=== PATIENT | male | born 1980 | race African-American/Black ===

== ENCOUNTER 2021-03-31 12:59 | Inpatient (IN) | payer OTHER ==
[2021-03-31] MEDS ORDERED: ONDANSETRON *ODT* 4 MG TABLET SL PRN (13:39)
[2021-03-31] MEDS ORDERED: MAGNESIUM CITRATE 300 ML BOTTLE PO PRN (13:39)
[2021-03-31] MEDS ORDERED: MAGNESIUM HYDROX 2400MG/30ML ORAL SUSPENSION 30 ML CUP PO PRN (13:39)
[2021-03-31] MEDS ORDERED: MENTHOL/PHENOL 1 EACH UD MM PRN (13:39)
[2021-03-31] MEDS ORDERED: ACETAMINOPHEN 325 MG TABLET (FP) PO PRN ×2 (13:39)
[2021-03-31] MEDS ORDERED: BISMUTH SUBSALICYLATE 524 MG/30 ML PO PRN (13:39)
[2021-03-31] MEDS ORDERED: diazePAM 5 MG TABLET PO PRN (13:39)
[2021-03-31] MEDS ORDERED: MAG HYDROX/AL HYDROX/SIMETH 30 ML UNIT-DOSE CUP PO PRN (13:39)
[2021-03-31] MEDS ORDERED: hydrOXYzine PAMOATE 25 MG CAPSULE (FP) PO SCH (14:00)
[2021-03-31 14:25] VITALS: BMI 29.3
[2021-03-31] MEDS ORDERED: cloNIDine HCL 0.1 MG TABLET ONE (14:31)
[2021-03-31] MEDS ORDERED: cloNIDine HCL 0.1 MG TABLET PO ONE (14:57)
[2021-03-31 17:21] LABS: HEMATOCRIT 45.4 % (35.4-49); HEMOGLOBIN 15.2 GM/dL (11.7-16.9); MCH 32.3 pg (25.7-33.7); MCHC 33.6 g/dl (32.0-35.9); MEAN CELL VOLUME 96.1 fl (80-96); MEAN PLT VOLUME 8.3 fl (7.5-11.1); PLATELET COUNT 273 10^3/uL (134-434); RBC 4.72 M/mm3 (4.00-5.60); RDW 15.6 % (11.9-15.9); WHITE BLOOD COUNT 10.5 K/mm3 (4.0-10.0)
[2021-03-31 17:28] LABS: CALCIUM 9.2 mg/dL (8.5-10.1)
[2021-03-31 17:29] LABS: ALBUMIN 3.7 g/dl (3.4-5.0); BLOOD UREA NITROGEN 13.8 mg/dL (7-18)
[2021-03-31 17:32] LABS: CREATININE 1.1 mg/dL (0.55-1.3)
[2021-03-31 17:34] LABS: BILIRUBIN,TOTAL 1.5 mg/dL (0.2-1); TOT PROT 8.4 g/dl (6.4-8.2)
[2021-03-31] MEDS: hydrOXYzine PAMOATE 25 MG CAPSULE (FP) PO PRN ×2 (17:56→22:10)
[2021-03-31] MEDS: diazePAM 5 MG TABLET PO SCH ×2 (17:57→22:10)
[2021-03-31] MEDS: HYDROCHLOROTHIAZIDE 12.5 MG CAPSULE (FP) PO SCH (17:57)
[2021-03-31] MEDS: METHOCARBAMOL 500 MG TABLET PO PRN (17:58)
[2021-03-31] MEDS: FLUOCINONIDE 0.05% TOP OINT (60 GM TUBE) TP SCH ×2 (18:02→22:10)
[2021-03-31] MEDS: MELATONIN 5 MG TABLETS PO SCH (22:10)
[2021-03-31] MEDS: THIAMINE HCL 100 MG TABLET (FP) PO SCH (22:10)
[2021-04-01] MEDS: diazePAM 5 MG TABLET PO SCH ×4 (05:29→22:32)
[2021-04-01] MEDS: HYDROCHLOROTHIAZIDE 12.5 MG CAPSULE (FP) PO SCH (10:07)
[2021-04-01] MEDS: hydrOXYzine PAMOATE 25 MG CAPSULE (FP) PO PRN (10:07)
[2021-04-01] MEDS: PRENATAL VITAMINS W/ FOLIC ACID TABLET (FP) PO SCH (10:07)
[2021-04-01] MEDS: FLUOCINONIDE 0.05% TOP OINT (60 GM TUBE) TP SCH ×4 (10:07→22:32)
[2021-04-01] MEDS: amLODIPine BESYLATE 5 MG TABLET (FP) PO SCH (10:07)
[2021-04-01] MEDS ORDERED: FLU VACC QS2021-22(6MOS UP)/PF 60 MCG/0.5 ML SYRINGE IM ONE (13:00)
[2021-04-01 13:26] LABS: HIV INTERPRETATION NEGATIVE (NEGATIVE)
[2021-04-01] MEDS: THIAMINE HCL 100 MG TABLET (FP) PO SCH (22:32)
[2021-04-01] MEDS: MELATONIN 5 MG TABLETS PO SCH (22:32)
[2021-04-01] MEDS: IBUPROFEN 400 MG TABLET (FP) PO PRN (22:34)
[2021-04-01] MEDS: NICOTINE 10 MG CARTRIDGE (INHALER) IH PRN (22:51)
[2021-04-02] MEDS ORDERED: diazePAM 5 MG TABLET PO SCH (06:00)
[2021-04-02] MEDS: amLODIPine BESYLATE 5 MG TABLET (FP) PO SCH (09:57)
[2021-04-02] MEDS: HYDROCHLOROTHIAZIDE 12.5 MG CAPSULE (FP) PO SCH (09:57)
[2021-04-02] MEDS: PRENATAL VITAMINS W/ FOLIC ACID TABLET (FP) PO SCH (09:58)
[2021-04-02] MEDS: FLUOCINONIDE 0.05% TOP OINT (60 GM TUBE) TP SCH ×4 (09:58→22:15)
[2021-04-02 10:33] LABS: BLOOD UREA NITROGEN 12.3 mg/dL (7-18); CALCIUM 8.8 mg/dL (8.5-10.1)
[2021-04-02 10:35] LABS: HEMATOCRIT 45.1 % (35.4-49); HEMOGLOBIN 15.2 GM/dL (11.7-16.9); MCH 32.1 pg (25.7-33.7); MCHC 33.7 g/dl (32.0-35.9); MEAN CELL VOLUME 95.3 fl (80-96); MEAN PLT VOLUME 8.2 fl (7.5-11.1); PLATELET COUNT 246 10^3/uL (134-434); RBC 4.74 M/mm3 (4.00-5.60); RDW 15.3 % (11.9-15.9); WHITE BLOOD COUNT 5.6 K/mm3 (4.0-10.0)
[2021-04-02 10:37] LABS: CREATININE 0.8 mg/dL (0.55-1.3)
[2021-04-02 10:38] LABS: BILIRUBIN,TOTAL 0.7 mg/dL (0.2-1); TOT PROT 7.1 g/dl (6.4-8.2)
[2021-04-02 11:08] LABS: ALBUMIN 2.8 g/dl (3.4-5.0)
[2021-04-02] MEDS ORDERED: LORazepam 1 MG TABLET PO PRN (13:41)
[2021-04-02] MEDS: LORazepam 2 MG TABLET PO SCH ×2 (17:48→22:16)
[2021-04-02] MEDS: THIAMINE HCL 100 MG TABLET (FP) PO SCH (22:15)
[2021-04-02] MEDS: MELATONIN 5 MG TABLETS PO SCH (22:16)
[2021-04-02] MEDS: IBUPROFEN 400 MG TABLET (FP) PO PRN (22:17)
[2021-04-02] MEDS: NICOTINE 10 MG CARTRIDGE (INHALER) IH PRN (22:18)
[2021-04-03] MEDS: LORazepam 2 MG TABLET PO SCH ×4 (05:39→22:16)
[2021-04-03] MEDS ORDERED: diazePAM 5 MG TABLET PO SCH (06:00)
[2021-04-03] MEDS: amLODIPine BESYLATE 5 MG TABLET (FP) PO SCH (10:11)
[2021-04-03] MEDS: HYDROCHLOROTHIAZIDE 12.5 MG CAPSULE (FP) PO SCH (10:11)
[2021-04-03] MEDS: PRENATAL VITAMINS W/ FOLIC ACID TABLET (FP) PO SCH (10:13)
[2021-04-03] MEDS: FLUOCINONIDE 0.05% TOP OINT (60 GM TUBE) TP SCH ×4 (10:13→22:16)
[2021-04-03 12:35] LABS: ALBUMIN 2.7 g/dl (3.4-5.0); BLOOD UREA NITROGEN 11.4 mg/dL (7-18)
[2021-04-03 12:37] LABS: INR 1.24 (0.83-1.09); PROTHROMBIN TIME (PATIENT) 13.9 SEC (9.7-13.0)
[2021-04-03 12:38] LABS: CREATININE 0.8 mg/dL (0.55-1.3)
[2021-04-03 12:40] LABS: BILIRUBIN,TOTAL 0.4 mg/dL (0.2-1); TOT PROT 6.8 g/dl (6.4-8.2)
[2021-04-03] MEDS: NICOTINE 10 MG CARTRIDGE (INHALER) IH PRN (17:41)
[2021-04-03] MEDS: THIAMINE HCL 100 MG TABLET (FP) PO SCH (22:16)
[2021-04-03] MEDS: MELATONIN 5 MG TABLETS PO SCH (22:16)
[2021-04-04] MEDS: LORazepam 1 MG TABLET PO SCH ×4 (05:32→22:19)
[2021-04-04] MEDS ORDERED: diazePAM 5 MG TABLET PO ONE (06:00)
[2021-04-04] MEDS: HYDROCHLOROTHIAZIDE 12.5 MG CAPSULE (FP) PO SCH (10:25)
[2021-04-04] MEDS: FLUOCINONIDE 0.05% TOP OINT (60 GM TUBE) TP SCH ×4 (10:25→22:53)
[2021-04-04] MEDS: PRENATAL VITAMINS W/ FOLIC ACID TABLET (FP) PO SCH (10:26)
[2021-04-04] MEDS: amLODIPine BESYLATE 5 MG TABLET (FP) PO SCH (10:26)
[2021-04-04] MEDS: NICOTINE 10 MG CARTRIDGE (INHALER) IH PRN (19:49)
[2021-04-04] MEDS ORDERED: MELATONIN 5 MG TABLETS PO SCH (22:00)
[2021-04-04] MEDS: THIAMINE HCL 100 MG TABLET (FP) PO SCH (22:18)
[2021-04-04] MEDS: METHOCARBAMOL 500 MG TABLET PO PRN (22:19)
[2021-04-04] MEDS: hydrOXYzine PAMOATE 25 MG CAPSULE (FP) PO PRN (22:19)
[2021-04-05] MEDS ORDERED: LORazepam 0.5 MG TABLET PO PRN
[2021-04-05] MEDS: LORazepam 0.5 MG TABLET PO SCH ×2 (05:24→10:21)
[2021-04-05] MEDS: HYDROCHLOROTHIAZIDE 12.5 MG CAPSULE (FP) PO SCH (10:22)
[2021-04-05] MEDS: PRENATAL VITAMINS W/ FOLIC ACID TABLET (FP) PO SCH (10:22)
[2021-04-05] MEDS: FLUOCINONIDE 0.05% TOP OINT (60 GM TUBE) TP SCH ×2 (10:22→14:30)
[2021-04-05] MEDS: amLODIPine BESYLATE 5 MG TABLET (FP) PO SCH (10:22)
[2021-04-05 12:56] VITALS: BP 147/93; PULSE 100; TEMP 96.1
[2021-04-06] MEDS ORDERED: LORazepam 0.5 MG TABLET PO ONE (05:00)
== END 2021-04-05 14:29 | disposition other institution (70) | DRG 774 ==
LOC: YASAS 12:59 → Y3N 14:40
PROVIDERS: ADMIT Allergy & Immunology; ATTEND Allergy & Immunology
PROC: HZ2ZZZZ Detoxification Services for Substance Abuse Treatment (ICD-10-PCS; principal; 2021-03-31)
DX: F10.20 Alcohol dependence, uncomplicated (principal); F14.20 Cocaine dependence, uncomplicated; F12.20 Cannabis dependence, uncomplicated; F17.210 Nicotine dependence, cigarettes, uncomplicated; F19.280 Other psychoactive substance dependence with psychoactive substance-induced anxiety disorder; F19.282 Other psychoactive substance dependence with psychoactive substance-induced sleep disorder; F32.A Depression, unspecified; D23.4 Other benign neoplasm of skin of scalp and neck; B18.2 Chronic viral hepatitis C; I10 Essential (primary) hypertension; M54.50 Low back pain, unspecified; G89.29 Other chronic pain; R74.8 Abnormal levels of other serum enzymes; Z59.01 Sheltered homelessness
CPT/HCPCS: 36415; 80053; 82947; 85027; 85610; 86780; 87389; 90686; 93005; 93010; C9803; G0008; J0735; U0003; U0005

== ENCOUNTER 2021-04-05 15:01 | Inpatient (IN) | payer OTHER ==
[2021-04-05] MEDS ORDERED: P-EPHED 60MG/TRIPROLIDI 2.5MG TABLET PO PRN (15:15)
[2021-04-05] MEDS ORDERED: MAG HYDROX/AL HYDROX/SIMETH 30 ML UNIT-DOSE CUP PO PRN (15:15)
[2021-04-05] MEDS ORDERED: ACETAMINOPHEN 325 MG TABLET (FP) PO PRN (15:15)
[2021-04-05] MEDS ORDERED: MAGNESIUM HYDROX 2400MG/30ML ORAL SUSPENSION 30 ML CUP PO PRN (15:15)
[2021-04-05] MEDS ORDERED: guaiFENesin 200 MG/10 ML 10 ML UNIT-DOSE CUPS PO PRN (15:15)
[2021-04-05] MEDS ORDERED: LOPERAMIDE HCL 2 MG CAPSULE PO PRN (15:15)
[2021-04-05] MEDS ORDERED: MAGNESIUM CITRATE 300 ML BOTTLE PO PRN (15:15)
[2021-04-05] MEDS ORDERED: MENTHOL/PHENOL 1 EACH UD MM PRN (15:15)
[2021-04-05] MEDS: hydrOXYzine PAMOATE 25 MG CAPSULE (FP) PO SCH ×2 (18:14→21:06)
[2021-04-05] MEDS: NICOTINE 10 MG CARTRIDGE (INHALER) IH PRN (18:15)
[2021-04-05] MEDS: FLUOCINONIDE 0.05% TOP OINT (60 GM TUBE) TP SCH ×2 (18:16→21:07)
[2021-04-05] MEDS: MELATONIN 5 MG TABLETS PO SCH (21:06)
[2021-04-05] MEDS: THIAMINE HCL 100 MG TABLET (FP) PO SCH (21:06)
[2021-04-06] MEDS: hydrOXYzine PAMOATE 25 MG CAPSULE (FP) PO SCH ×5 (06:33→21:19)
[2021-04-06] MEDS: PRENATAL VITAMINS W/ FOLIC ACID TABLET (FP) PO SCH (09:46)
[2021-04-06] MEDS: HYDROCHLOROTHIAZIDE 12.5 MG CAPSULE (FP) PO SCH (09:46)
[2021-04-06] MEDS: amLODIPine BESYLATE 5 MG TABLET (FP) PO SCH (09:47)
[2021-04-06] MEDS: FLUOCINONIDE 0.05% TOP OINT (60 GM TUBE) TP SCH ×4 (09:47→21:19)
[2021-04-06] MEDS: NICOTINE 7 MG/24 HOURS TOPICAL PATCH TD SCH (09:47)
[2021-04-06] MEDS: IBUPROFEN 400 MG TABLET (FP) PO PRN (09:47)
[2021-04-06] MEDS: NICOTINE 10 MG CARTRIDGE (INHALER) IH PRN ×2 (16:34→21:19)
[2021-04-06] MEDS: MELATONIN 5 MG TABLETS PO SCH (21:19)
[2021-04-06] MEDS: THIAMINE HCL 100 MG TABLET (FP) PO SCH (21:19)
[2021-04-07] MEDS: hydrOXYzine PAMOATE 25 MG CAPSULE (FP) PO SCH ×5 (07:24→21:03)
[2021-04-07] MEDS: IBUPROFEN 400 MG TABLET (FP) PO PRN (07:25)
[2021-04-07] MEDS: HYDROCHLOROTHIAZIDE 12.5 MG CAPSULE (FP) PO SCH (10:20)
[2021-04-07] MEDS: PRENATAL VITAMINS W/ FOLIC ACID TABLET (FP) PO SCH (10:20)
[2021-04-07] MEDS: amLODIPine BESYLATE 5 MG TABLET (FP) PO SCH (10:20)
[2021-04-07] MEDS: NICOTINE 7 MG/24 HOURS TOPICAL PATCH TD SCH (10:20)
[2021-04-07] MEDS: NICOTINE 10 MG CARTRIDGE (INHALER) IH PRN ×2 (10:23→16:31)
[2021-04-07] MEDS: FLUOCINONIDE 0.05% TOP OINT (60 GM TUBE) TP SCH ×4 (10:57→21:03)
[2021-04-07] MEDS: THIAMINE HCL 100 MG TABLET (FP) PO SCH (21:03)
[2021-04-07] MEDS: MELATONIN 5 MG TABLETS PO SCH (21:03)
[2021-04-08] MEDS: hydrOXYzine PAMOATE 25 MG CAPSULE (FP) PO SCH ×5 (05:53→21:31)
[2021-04-08] MEDS: amLODIPine BESYLATE 5 MG TABLET (FP) PO SCH (10:45)
[2021-04-08] MEDS: IBUPROFEN 400 MG TABLET (FP) PO PRN (10:45)
[2021-04-08] MEDS: NICOTINE 7 MG/24 HOURS TOPICAL PATCH TD SCH (10:45)
[2021-04-08] MEDS: HYDROCHLOROTHIAZIDE 12.5 MG CAPSULE (FP) PO SCH (10:45)
[2021-04-08] MEDS: PRENATAL VITAMINS W/ FOLIC ACID TABLET (FP) PO SCH (10:47)
[2021-04-08] MEDS: FLUOCINONIDE 0.05% TOP OINT (60 GM TUBE) TP SCH ×4 (10:48→21:31)
[2021-04-08] MEDS: NICOTINE 10 MG CARTRIDGE (INHALER) IH PRN (19:12)
[2021-04-08] MEDS: MELATONIN 5 MG TABLETS PO SCH (21:31)
[2021-04-08] MEDS: THIAMINE HCL 100 MG TABLET (FP) PO SCH (21:31)
[2021-04-09] MEDS: hydrOXYzine PAMOATE 25 MG CAPSULE (FP) PO SCH ×5 (06:30→21:01)
[2021-04-09] MEDS: IBUPROFEN 400 MG TABLET (FP) PO PRN (06:32)
[2021-04-09] MEDS: PRENATAL VITAMINS W/ FOLIC ACID TABLET (FP) PO SCH (09:59)
[2021-04-09] MEDS: NICOTINE 7 MG/24 HOURS TOPICAL PATCH TD SCH (09:59)
[2021-04-09] MEDS: amLODIPine BESYLATE 5 MG TABLET (FP) PO SCH (09:59)
[2021-04-09] MEDS: HYDROCHLOROTHIAZIDE 12.5 MG CAPSULE (FP) PO SCH (09:59)
[2021-04-09] MEDS: FLUOCINONIDE 0.05% TOP OINT (60 GM TUBE) TP SCH ×4 (11:04→21:02)
[2021-04-09] MEDS: NICOTINE 10 MG CARTRIDGE (INHALER) IH PRN ×2 (14:39→21:01)
[2021-04-09] MEDS: THIAMINE HCL 100 MG TABLET (FP) PO SCH (21:01)
[2021-04-09] MEDS: MELATONIN 5 MG TABLETS PO SCH (21:01)
[2021-04-10] MEDS: hydrOXYzine PAMOATE 25 MG CAPSULE (FP) PO SCH ×5 (06:07→21:54)
[2021-04-10] MEDS: HYDROCHLOROTHIAZIDE 12.5 MG CAPSULE (FP) PO SCH (10:03)
[2021-04-10] MEDS: amLODIPine BESYLATE 5 MG TABLET (FP) PO SCH (10:03)
[2021-04-10] MEDS: METHOCARBAMOL 500 MG TABLET PO PRN (10:03)
[2021-04-10] MEDS: IBUPROFEN 400 MG TABLET (FP) PO PRN (10:03)
[2021-04-10] MEDS: PRENATAL VITAMINS W/ FOLIC ACID TABLET (FP) PO SCH (10:03)
[2021-04-10] MEDS: FLUOCINONIDE 0.05% TOP OINT (60 GM TUBE) TP SCH ×4 (10:04→21:54)
[2021-04-10] MEDS: NICOTINE 7 MG/24 HOURS TOPICAL PATCH TD SCH (10:04)
[2021-04-10] MEDS: MELATONIN 5 MG TABLETS PO SCH (21:54)
[2021-04-10] MEDS: NICOTINE 10 MG CARTRIDGE (INHALER) IH PRN (21:54)
[2021-04-10] MEDS: THIAMINE HCL 100 MG TABLET (FP) PO SCH (21:54)
[2021-04-11] MEDS: IBUPROFEN 400 MG TABLET (FP) PO PRN ×2 (06:02→21:04)
[2021-04-11] MEDS: hydrOXYzine PAMOATE 25 MG CAPSULE (FP) PO SCH ×5 (06:02→21:03)
[2021-04-11] MEDS: FLUOCINONIDE 0.05% TOP OINT (60 GM TUBE) TP SCH ×4 (10:41→21:03)
[2021-04-11] MEDS: METHOCARBAMOL 500 MG TABLET PO PRN ×2 (10:42→21:03)
[2021-04-11] MEDS: HYDROCHLOROTHIAZIDE 12.5 MG CAPSULE (FP) PO SCH (10:42)
[2021-04-11] MEDS: amLODIPine BESYLATE 5 MG TABLET (FP) PO SCH (10:42)
[2021-04-11] MEDS: PRENATAL VITAMINS W/ FOLIC ACID TABLET (FP) PO SCH (10:42)
[2021-04-11] MEDS: NICOTINE 7 MG/24 HOURS TOPICAL PATCH TD SCH (10:42)
[2021-04-11] MEDS: NICOTINE 10 MG CARTRIDGE (INHALER) IH PRN (12:07)
[2021-04-11] MEDS: THIAMINE HCL 100 MG TABLET (FP) PO SCH (21:03)
[2021-04-11] MEDS: MELATONIN 5 MG TABLETS PO SCH (21:52)
[2021-04-12] MEDS: hydrOXYzine PAMOATE 25 MG CAPSULE (FP) PO SCH ×6 (06:28→21:29)
[2021-04-12] MEDS: IBUPROFEN 400 MG TABLET (FP) PO PRN ×2 (06:28→21:29)
[2021-04-12] MEDS: PRENATAL VITAMINS W/ FOLIC ACID TABLET (FP) PO SCH (10:41)
[2021-04-12] MEDS: NICOTINE 10 MG CARTRIDGE (INHALER) IH PRN ×2 (10:41→21:28)
[2021-04-12] MEDS: METHOCARBAMOL 500 MG TABLET PO PRN (10:41)
[2021-04-12] MEDS: amLODIPine BESYLATE 5 MG TABLET (FP) PO SCH (10:41)
[2021-04-12] MEDS: HYDROCHLOROTHIAZIDE 12.5 MG CAPSULE (FP) PO SCH (10:41)
[2021-04-12] MEDS: FLUOCINONIDE 0.05% TOP OINT (60 GM TUBE) TP SCH ×4 (10:41→21:29)
[2021-04-12] MEDS: NICOTINE 7 MG/24 HOURS TOPICAL PATCH TD SCH (10:41)
[2021-04-12] MEDS: THIAMINE HCL 100 MG TABLET (FP) PO SCH (21:28)
[2021-04-12] MEDS: MELATONIN 5 MG TABLETS PO SCH (21:28)
[2021-04-13] MEDS: hydrOXYzine PAMOATE 25 MG CAPSULE (FP) PO SCH ×5 (06:43→21:01)
[2021-04-13] MEDS: HYDROCHLOROTHIAZIDE 12.5 MG CAPSULE (FP) PO SCH (11:25)
[2021-04-13] MEDS: PRENATAL VITAMINS W/ FOLIC ACID TABLET (FP) PO SCH (11:25)
[2021-04-13] MEDS: FLUOCINONIDE 0.05% TOP OINT (60 GM TUBE) TP SCH ×4 (11:25→21:01)
[2021-04-13] MEDS: NICOTINE 7 MG/24 HOURS TOPICAL PATCH TD SCH (11:25)
[2021-04-13] MEDS: amLODIPine BESYLATE 5 MG TABLET (FP) PO SCH (11:25)
[2021-04-13] MEDS: IBUPROFEN 400 MG TABLET (FP) PO PRN (18:26)
[2021-04-13] MEDS: THIAMINE HCL 100 MG TABLET (FP) PO SCH (21:01)
[2021-04-13] MEDS: MELATONIN 5 MG TABLETS PO SCH (21:01)
[2021-04-14] MEDS: hydrOXYzine PAMOATE 25 MG CAPSULE (FP) PO SCH ×5 (05:49→21:55)
[2021-04-14] MEDS: PRENATAL VITAMINS W/ FOLIC ACID TABLET (FP) PO SCH (09:10)
[2021-04-14] MEDS: amLODIPine BESYLATE 5 MG TABLET (FP) PO SCH (09:10)
[2021-04-14] MEDS: HYDROCHLOROTHIAZIDE 12.5 MG CAPSULE (FP) PO SCH (09:10)
[2021-04-14] MEDS: NICOTINE 7 MG/24 HOURS TOPICAL PATCH TD SCH (09:11)
[2021-04-14] MEDS: FLUOCINONIDE 0.05% TOP OINT (60 GM TUBE) TP SCH ×4 (09:12→21:56)
[2021-04-14] MEDS: THIAMINE HCL 100 MG TABLET (FP) PO SCH (21:55)
[2021-04-14] MEDS: MELATONIN 5 MG TABLETS PO SCH (21:55)
[2021-04-14] MEDS: NICOTINE 10 MG CARTRIDGE (INHALER) IH PRN (21:56)
[2021-04-15] MEDS: hydrOXYzine PAMOATE 25 MG CAPSULE (FP) PO SCH ×5 (06:41→21:12)
[2021-04-15] MEDS: amLODIPine BESYLATE 5 MG TABLET (FP) PO SCH (09:54)
[2021-04-15] MEDS: HYDROCHLOROTHIAZIDE 12.5 MG CAPSULE (FP) PO SCH (09:54)
[2021-04-15] MEDS: PRENATAL VITAMINS W/ FOLIC ACID TABLET (FP) PO SCH (09:54)
[2021-04-15] MEDS: METHOCARBAMOL 500 MG TABLET PO PRN (09:54)
[2021-04-15] MEDS: NICOTINE 7 MG/24 HOURS TOPICAL PATCH TD SCH (09:55)
[2021-04-15] MEDS: IBUPROFEN 400 MG TABLET (FP) PO PRN ×2 (09:55→21:11)
[2021-04-15] MEDS: FLUOCINONIDE 0.05% TOP OINT (60 GM TUBE) TP SCH ×4 (09:55→21:12)
[2021-04-15] MEDS: MELATONIN 5 MG TABLETS PO SCH (21:11)
[2021-04-15] MEDS: THIAMINE HCL 100 MG TABLET (FP) PO SCH (21:11)
[2021-04-15] MEDS: NICOTINE 10 MG CARTRIDGE (INHALER) IH PRN (21:11)
[2021-04-16] MEDS: hydrOXYzine PAMOATE 25 MG CAPSULE (FP) PO SCH ×5 (06:15→21:30)
[2021-04-16] MEDS: amLODIPine BESYLATE 5 MG TABLET (FP) PO SCH ×2 (06:15→10:38)
[2021-04-16] MEDS: HYDROCHLOROTHIAZIDE 12.5 MG CAPSULE (FP) PO SCH ×2 (06:15→10:38)
[2021-04-16] MEDS: IBUPROFEN 400 MG TABLET (FP) PO PRN ×2 (10:37→21:30)
[2021-04-16] MEDS: FLUOCINONIDE 0.05% TOP OINT (60 GM TUBE) TP SCH ×4 (10:38→21:32)
[2021-04-16] MEDS: NICOTINE 7 MG/24 HOURS TOPICAL PATCH TD SCH (10:38)
[2021-04-16] MEDS: PRENATAL VITAMINS W/ FOLIC ACID TABLET (FP) PO SCH (10:38)
[2021-04-16] MEDS: NICOTINE 10 MG CARTRIDGE (INHALER) IH PRN ×2 (10:39→21:31)
[2021-04-16] MEDS: THIAMINE HCL 100 MG TABLET (FP) PO SCH (21:30)
[2021-04-16] MEDS: MELATONIN 5 MG TABLETS PO SCH (21:30)
[2021-04-17] MEDS: hydrOXYzine PAMOATE 25 MG CAPSULE (FP) PO SCH ×5 (06:35→21:11)
[2021-04-17] MEDS: PRENATAL VITAMINS W/ FOLIC ACID TABLET (FP) PO SCH (10:08)
[2021-04-17] MEDS: FLUOCINONIDE 0.05% TOP OINT (60 GM TUBE) TP SCH ×4 (10:08→21:12)
[2021-04-17] MEDS: amLODIPine BESYLATE 5 MG TABLET (FP) PO SCH (10:08)
[2021-04-17] MEDS: NICOTINE 7 MG/24 HOURS TOPICAL PATCH TD SCH (10:08)
[2021-04-17] MEDS: HYDROCHLOROTHIAZIDE 12.5 MG CAPSULE (FP) PO SCH (10:08)
[2021-04-17] MEDS: NICOTINE 10 MG CARTRIDGE (INHALER) IH PRN (10:09)
[2021-04-17] MEDS: IBUPROFEN 400 MG TABLET (FP) PO PRN (12:49)
[2021-04-17] MEDS: THIAMINE HCL 100 MG TABLET (FP) PO SCH (21:11)
[2021-04-17] MEDS: MELATONIN 5 MG TABLETS PO SCH (21:11)
[2021-04-17] MEDS: traZODone HCL 100 MG TABLET (FP) PO SCH (21:11)
[2021-04-18] MEDS: hydrOXYzine PAMOATE 25 MG CAPSULE (FP) PO SCH ×5 (06:18→21:33)
[2021-04-18] MEDS: IBUPROFEN 400 MG TABLET (FP) PO PRN ×2 (06:18→21:34)
[2021-04-18] MEDS: amLODIPine BESYLATE 5 MG TABLET (FP) PO SCH (07:11)
[2021-04-18] MEDS: PRENATAL VITAMINS W/ FOLIC ACID TABLET (FP) PO SCH (12:49)
[2021-04-18] MEDS: FLUOCINONIDE 0.05% TOP OINT (60 GM TUBE) TP SCH ×4 (12:49→21:35)
[2021-04-18] MEDS: HYDROCHLOROTHIAZIDE 12.5 MG CAPSULE (FP) PO SCH (12:49)
[2021-04-18] MEDS: NICOTINE 7 MG/24 HOURS TOPICAL PATCH TD SCH (12:49)
[2021-04-18] MEDS: traZODone HCL 100 MG TABLET (FP) PO SCH (21:33)
[2021-04-18] MEDS: MELATONIN 5 MG TABLETS PO SCH (21:33)
[2021-04-18] MEDS: NICOTINE 10 MG CARTRIDGE (INHALER) IH PRN (21:33)
[2021-04-18] MEDS: THIAMINE HCL 100 MG TABLET (FP) PO SCH (21:33)
[2021-04-19] MEDS: amLODIPine BESYLATE 5 MG TABLET (FP) PO SCH (06:21)
[2021-04-19] MEDS: hydrOXYzine PAMOATE 25 MG CAPSULE (FP) PO SCH ×5 (06:21→21:40)
[2021-04-19] MEDS: PRENATAL VITAMINS W/ FOLIC ACID TABLET (FP) PO SCH (10:01)
[2021-04-19] MEDS: HYDROCHLOROTHIAZIDE 12.5 MG CAPSULE (FP) PO SCH (10:01)
[2021-04-19] MEDS: FLUOCINONIDE 0.05% TOP OINT (60 GM TUBE) TP SCH ×4 (10:02→21:41)
[2021-04-19] MEDS: IBUPROFEN 400 MG TABLET (FP) PO PRN ×2 (10:03→21:41)
[2021-04-19] MEDS: NICOTINE 7 MG/24 HOURS TOPICAL PATCH TD SCH (10:05)
[2021-04-19] MEDS ORDERED: ACETAMINOPHEN 325 MG TABLET (FP) ONE (15:37)
[2021-04-19] MEDS: traZODone HCL 100 MG TABLET (FP) PO SCH (21:40)
[2021-04-19] MEDS: THIAMINE HCL 100 MG TABLET (FP) PO SCH (21:40)
[2021-04-19] MEDS: MELATONIN 5 MG TABLETS PO SCH (21:40)
[2021-04-20] MEDS: amLODIPine BESYLATE 5 MG TABLET (FP) PO SCH (06:20)
[2021-04-20] MEDS: hydrOXYzine PAMOATE 25 MG CAPSULE (FP) PO SCH ×5 (06:20→21:02)
[2021-04-20] MEDS: PRENATAL VITAMINS W/ FOLIC ACID TABLET (FP) PO SCH (10:30)
[2021-04-20] MEDS: NICOTINE 7 MG/24 HOURS TOPICAL PATCH TD SCH (10:30)
[2021-04-20] MEDS: HYDROCHLOROTHIAZIDE 12.5 MG CAPSULE (FP) PO SCH (10:31)
[2021-04-20] MEDS: FLUOCINONIDE 0.05% TOP OINT (60 GM TUBE) TP SCH ×4 (10:31→21:02)
[2021-04-20] MEDS: METHOCARBAMOL 500 MG TABLET PO PRN (10:31)
[2021-04-20] MEDS: IBUPROFEN 400 MG TABLET (FP) PO PRN (13:47)
[2021-04-20] MEDS: NICOTINE 10 MG CARTRIDGE (INHALER) IH PRN (19:06)
[2021-04-20] MEDS: traZODone HCL 100 MG TABLET (FP) PO SCH (21:02)
[2021-04-20] MEDS: THIAMINE HCL 100 MG TABLET (FP) PO SCH (21:02)
[2021-04-20] MEDS: MELATONIN 5 MG TABLETS PO SCH (21:02)
[2021-04-21] MEDS: amLODIPine BESYLATE 5 MG TABLET (FP) PO SCH (06:16)
[2021-04-21] MEDS: hydrOXYzine PAMOATE 25 MG CAPSULE (FP) PO SCH ×2 (06:16→10:23)
[2021-04-21] MEDS: PRENATAL VITAMINS W/ FOLIC ACID TABLET (FP) PO SCH (10:16)
[2021-04-21] MEDS: FLUOCINONIDE 0.05% TOP OINT (60 GM TUBE) TP SCH ×4 (10:17→21:18)
[2021-04-21] MEDS: HYDROCHLOROTHIAZIDE 12.5 MG CAPSULE (FP) PO SCH (10:17)
[2021-04-21] MEDS: IBUPROFEN 400 MG TABLET (FP) PO PRN ×2 (10:18→18:46)
[2021-04-21] MEDS: NICOTINE 7 MG/24 HOURS TOPICAL PATCH TD SCH (10:18)
[2021-04-21] MEDS: MELATONIN 5 MG TABLETS PO SCH (21:17)
[2021-04-21] MEDS: NICOTINE 10 MG CARTRIDGE (INHALER) IH PRN (21:17)
[2021-04-21] MEDS: THIAMINE HCL 100 MG TABLET (FP) PO SCH (21:17)
[2021-04-21] MEDS: traZODone HCL 100 MG TABLET (FP) PO SCH (21:17)
[2021-04-22] MEDS: amLODIPine BESYLATE 5 MG TABLET (FP) PO SCH (06:13)
[2021-04-22] MEDS: PRENATAL VITAMINS W/ FOLIC ACID TABLET (FP) PO SCH (10:35)
[2021-04-22] MEDS: NICOTINE 7 MG/24 HOURS TOPICAL PATCH TD SCH (10:35)
[2021-04-22] MEDS: FLUOCINONIDE 0.05% TOP OINT (60 GM TUBE) TP SCH ×4 (10:36→21:29)
[2021-04-22] MEDS: hydrOXYzine PAMOATE 25 MG CAPSULE (FP) PO PRN (10:36)
[2021-04-22] MEDS: HYDROCHLOROTHIAZIDE 12.5 MG CAPSULE (FP) PO SCH (10:36)
[2021-04-22] MEDS: NICOTINE 10 MG CARTRIDGE (INHALER) IH PRN ×2 (12:03→21:00)
[2021-04-22] MEDS: IBUPROFEN 400 MG TABLET (FP) PO PRN ×2 (12:04→21:01)
[2021-04-22] MEDS: THIAMINE HCL 100 MG TABLET (FP) PO SCH (21:00)
[2021-04-22] MEDS: MELATONIN 5 MG TABLETS PO SCH (21:00)
[2021-04-22] MEDS: traZODone HCL 100 MG TABLET (FP) PO SCH (21:01)
[2021-04-23] MEDS: amLODIPine BESYLATE 5 MG TABLET (FP) PO SCH (06:12)
[2021-04-23] MEDS: hydrOXYzine PAMOATE 25 MG CAPSULE (FP) PO PRN ×3 (06:12→21:28)
[2021-04-23] MEDS: PRENATAL VITAMINS W/ FOLIC ACID TABLET (FP) PO SCH (10:18)
[2021-04-23] MEDS: HYDROCHLOROTHIAZIDE 12.5 MG CAPSULE (FP) PO SCH (10:18)
[2021-04-23] MEDS: NICOTINE 7 MG/24 HOURS TOPICAL PATCH TD SCH (10:19)
[2021-04-23] MEDS: FLUOCINONIDE 0.05% TOP OINT (60 GM TUBE) TP SCH ×4 (10:19→21:29)
[2021-04-23] MEDS: NICOTINE 10 MG CARTRIDGE (INHALER) IH PRN (19:38)
[2021-04-23] MEDS: MELATONIN 5 MG TABLETS PO SCH (21:28)
[2021-04-23] MEDS: THIAMINE HCL 100 MG TABLET (FP) PO SCH (21:28)
[2021-04-23] MEDS: traZODone HCL 100 MG TABLET (FP) PO SCH (21:28)
[2021-04-23] MEDS: IBUPROFEN 400 MG TABLET (FP) PO PRN (21:29)
[2021-04-24] MEDS: amLODIPine BESYLATE 5 MG TABLET (FP) PO SCH (06:39)
[2021-04-24] MEDS: hydrOXYzine PAMOATE 25 MG CAPSULE (FP) PO PRN ×3 (06:40→21:05)
[2021-04-24] MEDS: METHOCARBAMOL 500 MG TABLET PO PRN (10:15)
[2021-04-24] MEDS: PRENATAL VITAMINS W/ FOLIC ACID TABLET (FP) PO SCH (10:15)
[2021-04-24] MEDS: HYDROCHLOROTHIAZIDE 12.5 MG CAPSULE (FP) PO SCH (10:15)
[2021-04-24] MEDS: NICOTINE 10 MG CARTRIDGE (INHALER) IH PRN (10:15)
[2021-04-24] MEDS: FLUOCINONIDE 0.05% TOP OINT (60 GM TUBE) TP SCH ×4 (10:20→21:06)
[2021-04-24] MEDS: NICOTINE 7 MG/24 HOURS TOPICAL PATCH TD SCH (10:20)
[2021-04-24] MEDS: MELATONIN 5 MG TABLETS PO SCH (21:05)
[2021-04-24] MEDS: THIAMINE HCL 100 MG TABLET (FP) PO SCH (21:05)
[2021-04-24] MEDS: traZODone HCL 100 MG TABLET (FP) PO SCH (21:05)
[2021-04-24] MEDS: IBUPROFEN 400 MG TABLET (FP) PO PRN (21:06)
[2021-04-25] MEDS: amLODIPine BESYLATE 5 MG TABLET (FP) PO SCH (06:24)
[2021-04-25] MEDS: HYDROCHLOROTHIAZIDE 12.5 MG CAPSULE (FP) PO SCH (09:41)
[2021-04-25] MEDS: FLUOCINONIDE 0.05% TOP OINT (60 GM TUBE) TP SCH ×4 (09:41→21:23)
[2021-04-25] MEDS: NICOTINE 7 MG/24 HOURS TOPICAL PATCH TD SCH (09:41)
[2021-04-25] MEDS: PRENATAL VITAMINS W/ FOLIC ACID TABLET (FP) PO SCH (09:41)
[2021-04-25] MEDS: hydrOXYzine PAMOATE 25 MG CAPSULE (FP) PO PRN ×2 (09:42→21:23)
[2021-04-25] MEDS: NICOTINE 10 MG CARTRIDGE (INHALER) IH PRN (17:30)
[2021-04-25] MEDS: THIAMINE HCL 100 MG TABLET (FP) PO SCH (21:22)
[2021-04-25] MEDS: MELATONIN 5 MG TABLETS PO SCH (21:23)
[2021-04-25] MEDS: IBUPROFEN 400 MG TABLET (FP) PO PRN (21:23)
[2021-04-25] MEDS: traZODone HCL 100 MG TABLET (FP) PO SCH (21:23)
[2021-04-26] MEDS: amLODIPine BESYLATE 5 MG TABLET (FP) PO SCH (06:01)
[2021-04-26] MEDS: hydrOXYzine PAMOATE 25 MG CAPSULE (FP) PO PRN ×2 (06:02→10:31)
[2021-04-26] MEDS: METHOCARBAMOL 500 MG TABLET PO PRN (06:02)
[2021-04-26] MEDS: PRENATAL VITAMINS W/ FOLIC ACID TABLET (FP) PO SCH (10:31)
[2021-04-26] MEDS: NICOTINE 7 MG/24 HOURS TOPICAL PATCH TD SCH (10:31)
[2021-04-26] MEDS: FLUOCINONIDE 0.05% TOP OINT (60 GM TUBE) TP SCH ×4 (10:31→21:08)
[2021-04-26] MEDS: HYDROCHLOROTHIAZIDE 12.5 MG CAPSULE (FP) PO SCH (10:31)
[2021-04-26] MEDS: IBUPROFEN 400 MG TABLET (FP) PO PRN ×2 (12:48→21:07)
[2021-04-26] MEDS: traZODone HCL 100 MG TABLET (FP) PO SCH (21:07)
[2021-04-26] MEDS: MELATONIN 5 MG TABLETS PO SCH (21:07)
[2021-04-26] MEDS: THIAMINE HCL 100 MG TABLET (FP) PO SCH (21:07)
[2021-04-27] MEDS: NICOTINE 10 MG CARTRIDGE (INHALER) IH PRN (06:05)
[2021-04-27] MEDS: hydrOXYzine PAMOATE 25 MG CAPSULE (FP) PO PRN ×3 (06:05→21:26)
[2021-04-27] MEDS: METHOCARBAMOL 500 MG TABLET PO PRN (06:05)
[2021-04-27] MEDS: amLODIPine BESYLATE 5 MG TABLET (FP) PO SCH (06:05)
[2021-04-27] MEDS: NICOTINE 7 MG/24 HOURS TOPICAL PATCH TD SCH (10:18)
[2021-04-27] MEDS: PRENATAL VITAMINS W/ FOLIC ACID TABLET (FP) PO SCH (10:18)
[2021-04-27] MEDS: HYDROCHLOROTHIAZIDE 12.5 MG CAPSULE (FP) PO SCH (10:18)
[2021-04-27] MEDS: FLUOCINONIDE 0.05% TOP OINT (60 GM TUBE) TP SCH ×4 (10:18→21:26)
[2021-04-27] MEDS: MELATONIN 5 MG TABLETS PO SCH (21:25)
[2021-04-27] MEDS: IBUPROFEN 400 MG TABLET (FP) PO PRN (21:26)
[2021-04-27] MEDS: traZODone HCL 100 MG TABLET (FP) PO SCH (21:26)
[2021-04-27] MEDS: THIAMINE HCL 100 MG TABLET (FP) PO SCH (21:26)
[2021-04-28] MEDS: amLODIPine BESYLATE 5 MG TABLET (FP) PO SCH (06:08)
[2021-04-28] MEDS: hydrOXYzine PAMOATE 25 MG CAPSULE (FP) PO PRN (06:08)
[2021-04-28] MEDS: METHOCARBAMOL 500 MG TABLET PO PRN (06:08)
[2021-04-28] MEDS: PRENATAL VITAMINS W/ FOLIC ACID TABLET (FP) PO SCH (09:39)
[2021-04-28] MEDS: HYDROCHLOROTHIAZIDE 12.5 MG CAPSULE (FP) PO SCH (09:39)
[2021-04-28] MEDS: FLUOCINONIDE 0.05% TOP OINT (60 GM TUBE) TP SCH ×4 (09:40→21:03)
[2021-04-28] MEDS: NICOTINE 7 MG/24 HOURS TOPICAL PATCH TD SCH (09:40)
[2021-04-28] MEDS: IBUPROFEN 400 MG TABLET (FP) PO PRN ×2 (12:42→21:02)
[2021-04-28] MEDS: THIAMINE HCL 100 MG TABLET (FP) PO SCH (21:02)
[2021-04-28] MEDS: MELATONIN 5 MG TABLETS PO SCH (21:02)
[2021-04-28] MEDS: traZODone HCL 100 MG TABLET (FP) PO SCH (21:02)
[2021-04-29] MEDS: hydrOXYzine PAMOATE 25 MG CAPSULE (FP) PO PRN ×2 (05:56→21:26)
[2021-04-29] MEDS: METHOCARBAMOL 500 MG TABLET PO PRN (05:56)
[2021-04-29] MEDS: amLODIPine BESYLATE 5 MG TABLET (FP) PO SCH (06:05)
[2021-04-29] MEDS: PRENATAL VITAMINS W/ FOLIC ACID TABLET (FP) PO SCH (10:16)
[2021-04-29] MEDS: NICOTINE 7 MG/24 HOURS TOPICAL PATCH TD SCH (10:16)
[2021-04-29] MEDS: HYDROCHLOROTHIAZIDE 12.5 MG CAPSULE (FP) PO SCH (10:16)
[2021-04-29] MEDS: FLUOCINONIDE 0.05% TOP OINT (60 GM TUBE) TP SCH ×4 (10:16→21:26)
[2021-04-29] MEDS: IBUPROFEN 400 MG TABLET (FP) PO PRN ×2 (10:17→21:26)
[2021-04-29] MEDS: MELATONIN 5 MG TABLETS PO SCH (21:26)
[2021-04-29] MEDS: THIAMINE HCL 100 MG TABLET (FP) PO SCH (21:26)
[2021-04-29] MEDS: traZODone HCL 100 MG TABLET (FP) PO SCH (21:26)
[2021-04-30] MEDS: amLODIPine BESYLATE 5 MG TABLET (FP) PO SCH (06:33)
[2021-04-30] MEDS: METHOCARBAMOL 500 MG TABLET PO PRN (06:33)
[2021-04-30] MEDS: hydrOXYzine PAMOATE 25 MG CAPSULE (FP) PO PRN ×2 (06:33→21:09)
[2021-04-30] MEDS: PRENATAL VITAMINS W/ FOLIC ACID TABLET (FP) PO SCH (09:41)
[2021-04-30] MEDS: HYDROCHLOROTHIAZIDE 12.5 MG CAPSULE (FP) PO SCH (09:41)
[2021-04-30] MEDS: NICOTINE 7 MG/24 HOURS TOPICAL PATCH TD SCH (09:41)
[2021-04-30] MEDS: FLUOCINONIDE 0.05% TOP OINT (60 GM TUBE) TP SCH ×4 (09:41→21:44)
[2021-04-30] MEDS: MELATONIN 5 MG TABLETS PO SCH (21:08)
[2021-04-30] MEDS: traZODone HCL 100 MG TABLET (FP) PO SCH (21:08)
[2021-04-30] MEDS: THIAMINE HCL 100 MG TABLET (FP) PO SCH (21:09)
[2021-04-30] MEDS: IBUPROFEN 400 MG TABLET (FP) PO PRN (21:09)
[2021-05-01] MEDS: hydrOXYzine PAMOATE 25 MG CAPSULE (FP) PO PRN ×2 (06:43→21:12)
[2021-05-01] MEDS: amLODIPine BESYLATE 5 MG TABLET (FP) PO SCH (06:44)
[2021-05-01] MEDS: METHOCARBAMOL 500 MG TABLET PO PRN (06:44)
[2021-05-01] MEDS: NICOTINE 7 MG/24 HOURS TOPICAL PATCH TD SCH (10:02)
[2021-05-01] MEDS: PRENATAL VITAMINS W/ FOLIC ACID TABLET (FP) PO SCH (10:02)
[2021-05-01] MEDS: FLUOCINONIDE 0.05% TOP OINT (60 GM TUBE) TP SCH ×4 (10:02→21:13)
[2021-05-01] MEDS: HYDROCHLOROTHIAZIDE 12.5 MG CAPSULE (FP) PO SCH (10:02)
[2021-05-01] MEDS: THIAMINE HCL 100 MG TABLET (FP) PO SCH (21:12)
[2021-05-01] MEDS: IBUPROFEN 400 MG TABLET (FP) PO PRN (21:12)
[2021-05-01] MEDS: traZODone HCL 100 MG TABLET (FP) PO SCH (21:12)
[2021-05-01] MEDS: MELATONIN 5 MG TABLETS PO SCH (21:12)
[2021-05-02] MEDS: amLODIPine BESYLATE 5 MG TABLET (FP) PO SCH (06:37)
[2021-05-02] MEDS: hydrOXYzine PAMOATE 25 MG CAPSULE (FP) PO PRN ×2 (06:37→14:47)
[2021-05-02] MEDS: METHOCARBAMOL 500 MG TABLET PO PRN (06:37)
[2021-05-02] MEDS: PRENATAL VITAMINS W/ FOLIC ACID TABLET (FP) PO SCH (09:36)
[2021-05-02] MEDS: FLUOCINONIDE 0.05% TOP OINT (60 GM TUBE) TP SCH ×4 (09:36→21:01)
[2021-05-02] MEDS: HYDROCHLOROTHIAZIDE 12.5 MG CAPSULE (FP) PO SCH (09:36)
[2021-05-02] MEDS: NICOTINE 7 MG/24 HOURS TOPICAL PATCH TD SCH (09:37)
[2021-05-02] MEDS: IBUPROFEN 400 MG TABLET (FP) PO PRN ×2 (14:46→21:01)
[2021-05-02] MEDS: MELATONIN 5 MG TABLETS PO SCH (21:01)
[2021-05-02] MEDS: traZODone HCL 100 MG TABLET (FP) PO SCH (21:01)
[2021-05-02] MEDS: THIAMINE HCL 100 MG TABLET (FP) PO SCH (21:01)
[2021-05-03] MEDS: amLODIPine BESYLATE 5 MG TABLET (FP) PO SCH (06:10)
[2021-05-03] MEDS: METHOCARBAMOL 500 MG TABLET PO PRN (06:10)
[2021-05-03] MEDS: hydrOXYzine PAMOATE 25 MG CAPSULE (FP) PO PRN (06:10)
[2021-05-03] MEDS ORDERED: PT OWN MED DRAWER 7, Y5N ONE (08:46)
[2021-05-03 10:09] VITALS: BP 145/91; PULSE 109; TEMP 98.8
[2021-05-03] MEDS: HYDROCHLOROTHIAZIDE 12.5 MG CAPSULE (FP) PO SCH (11:07)
[2021-05-03] MEDS: FLUOCINONIDE 0.05% TOP OINT (60 GM TUBE) TP SCH (11:07)
[2021-05-03] MEDS: PRENATAL VITAMINS W/ FOLIC ACID TABLET (FP) PO SCH (11:07)
[2021-05-03] MEDS: NICOTINE 7 MG/24 HOURS TOPICAL PATCH TD SCH (11:07)
== END 2021-05-03 09:11 | disposition home or self-care (01) | DRG 772 ==
LOC: YASAS 15:01 → Y3W 15:02
PROVIDERS: ADMIT Allergy & Immunology; ATTEND Allergy & Immunology
PROC: HZ42ZZZ Group Counseling for Substance Abuse Treatment, Cognitive-Behavioral (ICD-10-PCS; principal; 2021-04-05)
DX: F10.20 Alcohol dependence, uncomplicated (principal); F14.20 Cocaine dependence, uncomplicated; F12.20 Cannabis dependence, uncomplicated; F17.210 Nicotine dependence, cigarettes, uncomplicated; F19.282 Other psychoactive substance dependence with psychoactive substance-induced sleep disorder; F19.280 Other psychoactive substance dependence with psychoactive substance-induced anxiety disorder; F32.A Depression, unspecified; I10 Essential (primary) hypertension; M54.59 Other low back pain; G89.29 Other chronic pain; L30.9 Dermatitis, unspecified; Z62.810 Personal history of physical and sexual abuse in childhood; Z86.19 Personal history of other infectious and parasitic diseases; Z56.0 Unemployment, unspecified; Z59.01 Sheltered homelessness